=== PATIENT | male | born 1955 | race Two or more races ===

== ENCOUNTER → 2024-11-11 | Outpatient (CLI) | payer MEDICARE, MEDICAID, SELFPAY ==
[2024-11-11 16:45] LABS: Glucose Estimated Average 171 mg/dL (80-131); Hemoglobin A1C 7.6 % Hgb (4.8-6.0)
[2024-11-11 16:51] LABS: Albumin, Serum 3.9 gm/dL (3.4-4.8); Anion Gap 13 (7-16); BUN/Creatinine Ratio 14 Ratio (12-20); Blood Urea Nitrogen 17 mg/dL (9-23); Calcium 9.7 mg/dL (8.3-10.6); Calcium (Corrected) 9.8 mg/dL (8.5-10.1); Carbon Dioxide 23.7 mMol/L (20.0-31.0); Cardiac Risk Estimate 3.3 RATIO (4.0-6.7); Chloride 104 mMol/L (98-107); Cholesterol 101 mg/dL (132-200); Creatinine (Component) 1.2 mg/dL (0.6-1.3); Glucose 175 mg/dL (74-106); HDL Cholesterol 31 mg/dL (40-60); LDL Cholesterol,Calculated 40 mg/dL (0-130); Osmolality,Calculated 286 (275-295); Phosphorous 4.8 mg/dL (2.4-5.1); Potassium 4.5 mMol/L (3.4-5.1); Sodium 141 mMol/L (136-145); T4 (Thyroxine) 5.7 mcg/dL (4.5-10.9); Thyroid Stimulating Hormone 0.96 uIU/mL (0.55-4.78); Triglycerides 148 mg/dL (30-150); eGFR > 60 See Note
[2024-11-11 16:52] LABS: Vitamin B12 564 pg/mL (211-911)
== END | disposition home or self-care (01) ==
LOC: SLDO 15:07
PROVIDERS: PCP Hospitalist; Referring Provider Hospitalist; Visit Provider Hospitalist
DX: I69.391 Dysphagia following cerebral infarction (principal)
CPT/HCPCS: 36415; 80061; 80069; 82607; 83036; 84436; 84443

== ENCOUNTER → 2024-12-16 | Outpatient (CLI) | payer MEDICARE, MEDICAID, SELFPAY ==
--- NOTE | 2024-12-16 15:24 | XR_ITS ---
Examinations: MRI Brain without intravenous contrast. MRI brain with intravenous contrast MRA brain with intravenous contrast. MRA brain without intravenous contrast MRA neck with intravenous contrast Date and time of exam: December 16, 2024, 1539 hrs. Indications: Diagnosis cerebral infarction unspecified, left-sided body numbness post CVA September 09, 2024 Technique: Multiple axial and sagittal images of the brain have been obtained Siemens high-resolution 1.5 Lela short bore scanner is utilized. Sagittal sections, T1-weighted, TR 500, TE 14 Axial sections proton density and T2-weighted, TR 3,000, TE 34, TR 3,000, TE 91 Inversion recovery axial images, TR 9,260, TE 111, TI 2,500 Diffusion weighted images, axial sections, TR 4,800, TE 128, B value 1,000 Axial sections, ADC map, TR 4,800, TE 128. Contrast images have been obtained post intravenous 20 cc Gadolinium. T1-weighted axial and coronal images post contrast have been obtained. Angiographic images of neck and brain are obtained pre and post contrast. 3-D post processing performed, including brain, extracranial neck arterial maximum intensity projections Findings: [place] is not enlarged. The optic chiasm and infundibular stalk are not remarkable. Prepontine and interpeduncular cisterns are not enlarged. No localized enlargement of the medulla or rema. Fourth ventricle and cerebellar tonsils normal in position. Subacute hemorrhage is not seen. Fourth ventricle is midline. Mass in the cerebellopontine angle region is not evident. 7th and 8th nerve complexes exhibits symmetry. Globes are symmetrical with no retro-orbital mass. Increased white matter signal prominent, old infarct right frontal parietal lobe, left basal ganglia, right occipital lobe Diffusion-weighted images demonstratesubtle foci restricted diffusion in the right occipital lobe without obvious signal deficit on the ADC map. Mass-effect upon the ventricular system is not identified. Abnormal contrast enhancement is evident, mild enhancement in the right occipital lobe, axial image 11. MRA brain carotid images no critical carotid stenoses Moderate cerebral irregularity Impression: Negative for acute hemorrhage mass effect or midline shift Old infarcts as above Subtle foci restricted diffusion in the right occipital lobe without clear-cut signal deficit on the ADC map, however, subtle enhancement in the right occipital lobe on the postcontrast images, the appearance should be clinically correlated
== END | disposition home or self-care (01) ==
LOC: SMRI 14:57
PROVIDERS: PCP Hospitalist; Referring Provider Psychiatry & Neurology Neurology; Visit Provider Psychiatry & Neurology Neurology
DX: I63.9 Cerebral infarction, unspecified (principal)
CPT/HCPCS: 70546; 70548; 70553; A9577